=== PATIENT | male | born 2000 | race Caucasian/White ===

== ENCOUNTER 2023-01-24 15:22 | Emergency (ER) | payer MEDICAID ==
[~2023-01-24] VITALS: Ht 175.3 cm; Wt 59.1 kg
[2023-01-24 15:37] VITALS: TEMP 98.3; O2SAT 98
[2023-01-24 15:59] VITALS: BP 131/77; PULSE 79; RESP 18
[2023-01-24] MEDS ORDERED: IBUPROFEN 400MG TABLET PO ONE (16:00)
[2023-01-24] MEDS ORDERED: BACITRACIN ZINC OINT UDPKT TOP ONE (16:00)
[2023-01-24] MEDS ORDERED: LIDOCAINE HCL/PF 1% 10 MG/ML 5ML VIAL INFIL ONE (16:00)
[2023-01-24] MEDS ORDERED: TETANUS, DIPHTHERIA, PERTUSSIS VAC/PF 0.5ML (>10YR OLD) IM ONE (16:00)
[2023-01-24] MEDS ORDERED: CEPH500C2 MT (17:25)
[2023-01-24] MEDS ORDERED: NAPR500T7 MT (17:26)
== END 2023-01-24 17:59 | disposition home or self-care (01) ==
LOC: ER 15:22
DX: S62.521A Displaced fracture of distal phalanx of right thumb, initial encounter for closed fracture (principal); X58.XXXA Exposure to other specified factors, initial encounter; Y93.89 Activity, other specified; Y92.89 Other specified places as the place of occurrence of the external cause; Y99.8 Other external cause status
CPT/HCPCS: 73130; 90715; 12001; 90471; 99283; J3490; Z7610 ×2

== ENCOUNTER 2023-02-08 08:50 | Emergency (ER) | payer MEDICAID ==
[~2023-02-08] VITALS: Ht 167.6 cm; Wt 59.0 kg
[~2023-02-08 08:50] MED LIST: CEPH500C2 MT; NAPR500T7 MT
[2023-02-08 08:59] VITALS: BP 114/68
[2023-02-08] MEDS ORDERED: BACITRACIN ZINC OINT UDPKT TOP ONE (09:30)
== END 2023-02-08 09:50 | disposition home or self-care (01) ==
LOC: ER 09:03
DX: S61.012D Laceration without foreign body of left thumb without damage to nail, subsequent encounter (principal); X58.XXXD Exposure to other specified factors, subsequent encounter
CPT/HCPCS: 99282

== ENCOUNTER 2023-12-02 07:13 | Emergency (ER) | payer MEDICAID ==
[~2023-12-02] VITALS: Ht 172.7 cm; Wt 68.0 kg
[2023-12-02 07:17] VITALS: BP 135/83; PULSE 68; RESP 20; TEMP 98.4; O2SAT 98
[2023-12-02 07:40] LABS: CLARITY URINE TURBID (CLEAR); COLOR URINE YELLOW (YELLOW); GLUCOSE URINE NEGATIVE (NEGATIVE); KETONES URINE NEGATIVE (NEGATIVE); LEUKOCYTE ESTERASE URINE NEGATIVE (NEGATIVE); NITRITE URINE NEGATIVE (NEGATIVE); OCCULT BLOOD URINE NEGATIVE (NEGATIVE); PROTEIN URINE NEGATIVE (NEGATIVE); UROBILINOGEN URINE 0.2 E.U./dL (0.2-1.0)
[2023-12-02 08:16] LABS: ALANINE AMINOTRANSFERASE 13 IU/L (10-49); ALBUMIN 4.5 g/dL (3.2-4.8); ASPARTATE AMINOTRANSFERASE 18 IU/L (<34); BASOPHILS % 0.3 % (0.0-2.0); BILIRUBIN TOTAL 0.5 mg/dL (0.1-1.0); CALCIUM 8.8 mg/dL (8.7-10.4); CARBON DIOXIDE 29 mEq/L (21-32); CHLORIDE 106 mEq/L (98-107); CREATININE 0.7 mg/dL (0.6-1.3); EOSINOPHILS % 0.2 % (0.0-5.0); GLUCOSE 103 mg/dL (70-105); HEMATOCRIT. 42.5 % (42.0-52.0); HEMOGLOBIN. 14.3 g/dL (14.0-18.0); LYMPHOCYTES % 11.4 % (20.0-50.0); MEAN CORPUSCULAR HEMOGLOBIN 30.1 pg (28.0-32.0); MEAN CORPUSCULAR HGB CONC 33.6 g/dL (31.0-37.0); MEAN CORPUSCULAR VOLUME 89.6 fL (80.0-94.0); MEAN PLATELET VOLUME 8.1 fl (7.4-10.4); NEUTROPHILS % 83.1 % (40.0-76.0); PLATELET 335 x1000/uL (130-400); POTASSIUM 4.4 mEq/L (3.5-5.1); RED BLOOD CELL COUNT 4.75 mill/uL (4.7-6.1); RED CELL DISTRIBUTION WIDTH 13.5 % (11.6-14.6); SODIUM 136 mEq/L (136-145); UREA NITROGEN BLOOD 11 mg/dL (9-23); WHITE BLOOD COUNT 13.8 x1000/uL (4.5-11.0)
[2023-12-02 08:17] LABS: TROPONIN I HIGH SENSITIVITY < 4 ng/L (3.0-53)
[2023-12-02] MEDS ORDERED: IBUP-2029 MT (09:17)
[2023-12-02] MEDS ORDERED: GUAI-450 MT (09:17)
[2023-12-02 09:32] LABS: AMORPHOUS SEDIMENT URINE 2+ /lpf; BACTERIA URINE NONE SEEN; SQUAMOUS EPITHELIAL CELL URINE NONE SEEN /lpf (RARE/1+)
[2023-12-02 09:33] LABS: RBC URINE 0-2 /hpf (0-2); WBC URINE 0-2 /hpf (0-2)
== END 2023-12-02 10:02 | disposition home or self-care (01) ==
LOC: ER 07:13
DX: J06.9 Acute upper respiratory infection, unspecified (principal); R07.89 Other chest pain
CPT/HCPCS: 36415; 71045; 80053; 81003; 84484; 85025; 93005; 99285

== ENCOUNTER 2024-10-04 21:16 | Emergency (ER) | payer MEDICAID, OTHER ==
[~2024-10-04] VITALS: Ht 170.2 cm; Wt 61.0 kg
[~2024-10-04 21:16] MED LIST changes: +GUAI-450 MT; +IBUP-2029 MT; +NAPR-1486 MT; -NAPR500T7 MT
[2024-10-04 21:21] VITALS: BP 130/92; PULSE 20; RESP 18; TEMP 98.6; O2SAT 97
[2024-10-04] MEDS ORDERED: ALBU18HF2 IH (21:37)
== END 2024-10-04 22:21 ==
LOC: ER 21:16
DX: J45.909 Unspecified asthma, uncomplicated (principal); Z76.0 Encounter for issue of repeat prescription; Z79.1 Long term (current) use of non-steroidal anti-inflammatories (NSAID)
CPT/HCPCS: 99283